=== PATIENT | male | born 1945 | race Caucasian/White ===

== ENCOUNTER 2018-04-09 09:23 | Inpatient (IN) | payer OTHER, BC ==
[2018-04-09] MEDS ORDERED: NS 1,000 ML IV ONE (09:36)
[2018-04-09] MEDS ORDERED: VANCOMYCIN HCL/NORMAL SALINE 250 ML IV ONE (09:36)
--- NOTE | 2018-04-09 09:42 | EDPHY ---
H & P Time Seen by Provider: 04/09/18 09:28 HPI/ROS: CHIEF COMPLAINT: Redness and blistering on the right foot HISTORY OF PRESENT ILLNESS: Patient is a history of osteomyelitis and cellulitis with right 2nd toe removal in the past. He is here visiting from [place] for a relative sweating and started getting redness on the right toe and a blister on it on Tuesday. Over the last 2 days the redness has gotten worsen 2 blisters have popped. He does not really have pain because of peripheral neuropathy, no associated fever or chills. No associated leg swelling or cough or chest pain. Not short of breath. Symptoms moderate currently in associated with a little bit of clear drainage. REVIEW OF SYSTEMS: Eye: no change in vision ENT: no sore throat Cardiac: no chest pain or syncope Pulmonary: no cough or SOB Abdomen: no vomiting, diarrhea, abdominal pain Musculoskeletal: No leg swelling, foot as in HPI Skin: HPI Neuro: no headache Constitutional: no fever : no urinary symptoms A comprehensive 10 point review of systems is otherwise negative aside from elements mentioned in the history of present illness. PAST MEDICAL HISTORY: Includes DVT, neuropathy, osteomyelitis. Social history: From [place] as above General Appearance: Alert and conversant, cooperative. Eyes: No scleral icterus. ENT, Mouth: Normal mucous membranes. Respiratory: Normal respiratory effort, breath sounds equal, lungs are clear to auscultation. Cardiovascular: Regular rate and rhythm. Gastrointestinal: Abdomen is soft and non tender. Neurological: Alert, face symmetric, normal motor and sensory in extremities. Skin: Redness and warmth on the right great toe extending proximally just past the metatarsophalangeal joint, no crepitus or fluctuance. 2 blisters which have ruptured on the medial side. Musculoskeletal: No peripheral edema. No calf tenderness. Psychiatric: Not agitated. Emergency Department course/MDM: Patient presents with cellulitis and has a history of MRSA. He also has a history of osteomyelitis with a toe resection in the past. Does not appear toxic or hypotensive. Labs to include lactate screening and x-ray ordered, IV vancomycin and wound culture, admission hospitalist service. Smoking Status: Never smoked Constitutional: Initial Vital Signs Temperature (C) 36.7 C 04/09/18 09:31 Heart Rate 87 04/09/18 09:31 Respiratory Rate 16 04/09/18 09:31 Blood Pressure 181/111 H 06/17/18 09:31 O2 Sat (%) 96 04/09/18 09:31 O2 Delivery Mode Room Air Allergies/Adverse Reactions: No Known Allergies Allergy (Unverified 04/09/18 09:30) Home Medications: Medication Instructions Recorded Acamprosate Calcium 666 mg PO TID 04/09/18 Aspirin [Aspirin 81mg (*)] 81 mg PO DAILY 04/09/18 Atorvastatin Calcium [Lipitor 40 40 mg PO HS 04/09/18 mg (*)] Calcium Citrate [Calcitrate] 200 mg PO DAILY@152904/09/18 Cholecalciferol (Vitamin D3) 2,000 unit PO DAILY@152904/09/18 [Vitamin D3] Folic Acid [Folic Acid 1 MG (*)] 1 mg PO DAILY@152904/09/18 Glucosamine/Chondroitin 1 each PO DAILY 04/09/18 [Glucosamine/Chondroitin (*)] Rivaroxaban [Xarelto] 20 mg PO HS 04/09/18 Tamsulosin HCl [Flomax] 0.4 mg PO DAILY 04/09/18 Valsartan [Diovan (*)] 160 mg PO HS 04/09/18 Vitamin B Complex [Vitamin B 1 each PO DAILY@152904/09/18 Complex (OTC)] buPROPion XL [Wellbutrin Xl] 150 mg PO BID@0804/09/18 Medical Decision Making - Diagnostics Imaging Results: Imaging Impressions Foot X-Ray 04/09/18 09:36 Impression: Surgical resection of the second toe and second and third metatarsal head. Erosions at the dorsomedial aspect of the IP joint great toe which could represent osteomyelitis or erosive arthropathy. Overlying soft tissue swelling. Other degenerative change, as above. Imaging: I viewed and interpreted images myself Differential Diagnosis: Differential considered including but not limited to abscess, fasciitis, osteomyelitis, cellulitis of the right foot. Consult/Admit Bed Type: [address] - Data Points Laboratory Results: Laboratory Results 04/09/18 09:40 04/09/18 09:40 04/09/18 04/09/18 04/09/18 09:40 09:40 09:40 WBC 6.45 10^3/uL 10^3/uL (3.80-9.50) RBC 4.02 10^6/uL L 10^6/uL (4.40-6.38) Hgb 10.9 g/dL L g/dL (13.7-17.5) Hct 34.1 % L % (40.0-51.0) MCV 84.8 fL fL (81.5-99.8) MCH 27.1 pg L pg (27.9-34.1) MCHC 32.0 g/dL L g/dL (32.4-36.7) RDW 15.1 % % (11.5-15.2) Plt Count 330 10^3/uL 10^3/uL (150-400) MPV 9.0 fL fL (8.7-11.7) Neut % (Auto) 75.0 % H % (39.3-74.2) Lymph % (Auto) 12.6 % L % (15.0-45.0) Anson % (Auto) 9.9 % % (4.5-13.0) Eos % (Auto) 1.7 % % (0.6-7.6) Baso % (Auto) 0.5 % % (0.3-1.7) Nucleat RBC Rel Count 0.0 % % (0.0-0.2) Absolute Neuts (auto) 4.84 10^3/uL 10^3/uL (1.70-6.50) Absolute Lymphs (auto) 0.81 10^3/uL L 10^3/uL (1.00-3.00) Absolute Monos (auto) 0.64 10^3/uL 10^3/uL (0.30-0.80) Absolute Eos (auto) 0.11 10^3/uL 10^3/uL (0.03-0.40) Absolute Basos (auto) 0.03 10^3/uL 10^3/uL (0.02-0.10) Absolute Nucleated RBC 0.00 10^3/uL 10^3/uL (0-0.01) Immature Gran % 0.3 % % (0.0-1.1) Immature Gran # 0.02 10^3/uL 10^3/uL (0.00-0.10) PT 18.3 SEC H SEC (12.0-15.0) INR 1.50 H (0.83-1.16) APTT 33.7 SEC SEC (23.0-38.0) VBG Lactic Acid Sodium 134 mEq/L L mEq/L (135-145) Potassium 4.2 mEq/L mEq/L (3.3-5.0) Chloride 97 mEq/L mEq/L (97-110) Carbon Dioxide 25 mEq/l mEq/l (22-31) Anion Gap 12 mEq/L mEq/L (8-16) BUN 13 mg/dL mg/dL (7-23) Creatinine 1.1 mg/dL mg/dL (0.7-1.3) Estimated GFR > 60 Glucose 93 mg/dL mg/dL (70-100) Calcium 9.3 mg/dL mg/dL (8.5-10.4) Total Bilirubin 0.7 mg/dL mg/dL (0.1-1.4) 04/09/18 09:40 WBC RBC Hgb Hct MCV MCH MCHC RDW Plt Count MPV Neut % (Auto) Lymph % (Auto) Anson % (Auto) Eos % (Auto) Baso % (Auto) Nucleat RBC Rel Count Absolute Neuts (auto) Absolute Lymphs (auto) Absolute Monos (auto) Absolute Eos (auto) Absolute Basos (auto) Absolute Nucleated RBC Immature Gran % Immature Gran # PT INR APTT VBG Lactic Acid 1.3 mmol/L mmol/L (0.7-2.1) Sodium Potassium Chloride Carbon Dioxide Anion Gap BUN Creatinine Estimated GFR Glucose Calcium Total Bilirubin Medications Given: Discontinued Medications Sodium Chloride (Ns) 1,000 mls @ 0 mls/hr IV EDNOW ONE; Wide Open PRN Reason: Protocol Stop: 04/09/18 09:37 Last Admin: 04/09/18 10:09 Dose: 1,000 mls Vancomycin/Sodium Chloride (Vancomycin 1 Gm (Premix)) 250 mls @ 250 mls/hr IV EDNOW ONE PRN Reason: Protocol Stop: 04/09/18 10:35 Last Admin: 04/09/18 10:08 Dose: 250 mls Departure - Departure Disposition: [facility] Inpatient Acute Clinical Impression: Cellulitis of great toe of right foot Condition: Good
[2018-04-09 09:57] LABS: PLATELET COUNT 330 10^3/uL (150-400)
[2018-04-09 10:06] LABS: INR 1.5 (0.83-1.16); PROTIME(PATIENT) 18.3 SEC (12.0-15.0)
[2018-04-09] MEDS ORDERED: ACETAMINOPHEN 325 MG TAB PO PRN (10:26)
[2018-04-09] MEDS ORDERED: ONDANSETRON DISINTEGRATING 4 MG TAB PO PRN (10:26)
[2018-04-09] MEDS ORDERED: ONDANSETRON 4 MG/2 ML VIAL IVP PRN (10:26)
--- NOTE | 2018-04-09 12:07 | PDCONSULT ---
Motor Room Controller Note: Dr. Oropeza requested surgical consultation for a right foot infection. 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 He had a right second toe amp in 2010 and had an open wound for 5 years that ultimately closed. He travelled from [place] to [place] with his last week and wore sandals. He was admitted this morning with redness, pain and swelling of the right great toe. PMH: HTN, neuropathy, EtOHism (sober x 2.5 years) surgery: right second toe amputation 2010 ([facility]) non-smoker SH: and accompanied by his they live in [place] FH: NC ROS: denies recent trauma PE: T36.7 P 87 R 16 BP 181/111 elderly male in NAD RLE: DP/PT pulses +4/+4 erythema right great toe with open wound plantar surface no crepitance/fluctuance Plain films reviewed Imp: cellulitis R great toe, acute on chronic with prior hx MRSA/osteomyelitis no obvious gangrene, no vascular insufficiency Rec: Podiatry consult/continue IV Vanco/pending cultures MRI foot may be of value
[2018-04-09] MEDS ORDERED: GADOBUTROL 10 ML VIAL IVP ONE (12:42)
--- NOTE | 2018-04-09 13:08 | GHP ---
[f rep st] HISTORY AND PHYSICAL DATE OF ADMISSION: 04/09/2018 CHIEF COMPLAINT: Right great toe cellulitis. HISTORY OF PRESENT ILLNESS: A 72-year-old male with history of peripheral neuropathy, secondary to alcohol, prior right foot MRSA infection and osteomyelitis of the right foot with 2nd toe amputation, presenting with right great toe swelling and redness. He and his are here visiting from [place] for a wedding. He has been wearing sandals, instead of his orthotics and developed a blister on the bottom of his foot. This was draining serosanguineous fluid per , but last night, he developed a couple of more blisters and warmth and redness over the top of the toe, as well as the dorsum. He denies any fevers, chills, or sweats. No nausea, vomiting, or diarrhea. He has minimal pain. Initial infection originated in 2010, after getting a blister on his foot. He had a 2nd toe amputation and then had chronic wound healing issues for several years. REVIEW OF SYSTEMS: I completed a 10-point review of systems, negative, except as noted in HPI. PAST MEDICAL HISTORY: 1. Neuropathy, secondary to alcohol. 2. MRSA infection of right foot, osteomyelitis right foot. 3. Left leg DVT x3, on chronic anticoagulation. 4. Hypertension. 5. Hyperlipidemia. PAST SURGICAL HISTORY: Left ANIA, cholecystectomy, right 2nd toe amputation, secondary to osteomyelitis. FAMILY HISTORY: Mother with CVA, alcoholism, lung cancer, hypertension. Father with Parkinson's dementia. SOCIAL HISTORY: Lives in [place] with his . No alcohol, quit in 2014, was a heavy drinker previously. No tobacco or illicits. ALLERGIES: No known drug allergies. HOME MEDICATIONS: Flomax 0.5 mg daily, vitamin D3, calcium citrate, folic acid , vitamin B, aspirin 81 mg day daily, glucosamine, atorvastatin 40 mg at bedtime , valsartan 160 mg at bedtime, Xarelto 20 mg at bedtime, Wellbutrin 150 mg b.i.d., and acamprosate calcium. PHYSICAL EXAMINATION: VITAL SIGNS: Temperature 36.7, blood pressure 174/99, heart rate in the 50s, respirations 18, 93% on room air. GENERAL: male in no acute distress. HEENT: PERRLA. Moist mucous membranes. CV: Regular rate and rhythm. LUNGS: Clear anteriorly. ABDOMEN: Soft, nontender, nondistended. Positive bowel sounds. : No Agarwal. MUSCULOSKELETAL: Right great toe swollen with erythema, warmth to touch. He has an unroofed blister on the bottom of his toe, 2 other blisters on the top. Mild tenderness with palpation. Is draining serosanguineous fluid. Minimal redness over the dorsum. NEUROLOGIC: 2 through 12 intact. Decreased sensation to touch bilateral feet. PSYCH: Alert and oriented x3. LABORATORY/IMAGING: WBC 6, hemoglobin 10, hematocrit 34, platelets 330. INR is 1.5. Lactate is 1.3. Sodium 134, potassium 4.2, chloride 97, carbon dioxide 25, creatinine 1.1, glucose 93, calcium 9.3. Foot x-ray impression: Surgical resection of the 2nd toe and 2nd and 3rd metatarsal head. Erosions at the dorsomedial aspect of the IP, great toe, which could represent osteo or erosive arthropathy. Overlying soft tissue swelling. ASSESSMENT/PLAN: 1. Acute right great toe cellulitis versus osteomyelitis: This occurred this past week with blistering. With history of methicillin-resistant Staphylococcus aureus, we will treat with IV vancomycin. Appreciate Dr. Abreu' evaluation. There is no evidence of gangrene. I will consult Podiatry for further evaluation. MRI pending. 2. History of left leg deep venous thrombosis x3: Will resume Xarelto if no surgical intervention warranted. 3. Accelerated hypertension: Resume home medications. 4. Peripheral neuropathy: This is secondary to chronic alcoholism. 5. History of alcohol abuse: Continue acamprosate calcium. 6. Hyperlipidemia: Statin. 7. Benign prostatic hypertrophy: Fosamax. 8. Diet: Regular. 9. Deep venous thrombosis prophylaxis: On Xarelto. DISPOSITION: Patient warrants inpatient admission for acute right great toe cellulitis warranting IV antibiotics and podiatry evaluation. /[id number]/MODL MTDD
[2018-04-09] MEDS: buPROPion XL 150 MG TAB PO SCH (15:07)
[2018-04-09] MEDS: ACAMPROSATE CALCIUM 333 MG TAB PO SCH ×2 (15:07→21:44)
[2018-04-09] MEDS ORDERED: CHOLECALCIFEROL VIT D3 2,000 UNITS TAB/CAP PO SCH (15:30)
[2018-04-09] MEDS ORDERED: FOLIC ACID 1 MG TAB PO SCH (15:30)
[2018-04-09] MEDS ORDERED: CALCIUM CARBONATE 500 MG TAB PO SCH (15:30)
[2018-04-09] MEDS ORDERED: VITAMIN B COMPLEX 1 EA CAP/TAB PO SCH (15:30)
--- NOTE | 2018-04-09 15:30 | PDMN ---
Medical Necessity Medical necessity: C/M review: est. > 2 MN LOS for eval and TX of acute right great tor cellulitis versus osteomyelitis requiring General Surgery consult, right lower extremity MRI, planned Podiatry consult, Wound Care consult, ongoing IV Vancomycin,, comorbid history of left leg DVT, accelerated hypertension, peripheral neuropathy secondary to alcohol, hyperlipidemia, benign prostatic hypertrophy, MRSA infection of right foot, osteomyelitis of right foot, right second toe amputation secondary to osteomyelitis per H/P.
--- NOTE | 2018-04-09 16:18 | SOAPPROG ---
SOAP Progress Note Assessment/Plan: Assessment: 1. right foot ulceration with cellulitis 2. PN due to ETOH Plan: 1. Debridement of callosity to right hallux. 2. DSD applied to right foot: silvasorb, gauze, coban. Wear surgical shoe until wound has healed. Follow up as outpatient in [place] upon return. Must return to appropriate shoe gear and orthotics after skin has healed to prevent further skin irritation/infection and potential loss of toes/foot/life. 3. Due to osteomyelitis being unlikely after MRI, I would assume that IV abx can be converted to broad spectrum abx (Augmentin, Bactrim, etc) prior to d/c. 4. Podiatry appreciates referral. 04/09/18 16:13 Subjective: doing well. No pain even in sight of cellulitis. denies f/c/n/v. Objective: Vital Signs Temp Pulse Resp BP Pulse Ox 36.4 C 59 L 18 159/96 H 91 L 04/09/18 15:53 04/09/18 15:53 04/09/18 15:53 04/09/18 15:53 04/09/18 15:53 04/08/18 04/09/18 04/10/18 05:59 05:59 05:59 Intake Total 1250 Balance 1250 PT 18.3 SEC (12.0-15.0) H 04/09/18 09:40 INR 1.50 (0.83-1.16) H 04/09/18 09:40 wound underlying callosity medial aspect of IPJ right hallux; wound is superficial with out exposed capsule/tendon/bone; periwound is erythematous with mild HPK; no malodor or drainage; DP/PT pulses 2/4 bilateral; edema and cellulitis present; calor as well - Time Spent With Patient Time Spent With Patient: 40 minutes - Pending Discharge Pending Discharge Within 24 Hours: Yes Pending Discharge Date: 04/10/18 Pending Discharge Time: 11:00 ICD10 Worksheet Patient Problems: Problems Problem Status Onset Cellulitis of great toe of right foot Acute
[2018-04-09] MEDS ORDERED: RIVAROXABAN 20 MG TAB PO SCH (21:00)
[2018-04-09] MEDS ORDERED: VALSARTAN 160 MG TAB PO SCH (21:00)
[2018-04-09] MEDS ORDERED: ATORVASTATIN CALCIUM 40 MG TAB PO SCH (21:00)
[2018-04-09] MEDS: VANCOMYCIN 1.25 GM in NS 250 ML IV SCH (21:44)
[2018-04-10 08:08] VITALS: BP 140/91
[2018-04-10] MEDS: ACAMPROSATE CALCIUM 333 MG TAB PO SCH (08:48)
[2018-04-10] MEDS: buPROPion XL 150 MG TAB PO SCH (08:49)
[2018-04-10] MEDS ORDERED: GLUCOSAMINE/CHONDROITIN CAP PO SCH (09:00)
[2018-04-10] MEDS ORDERED: TAMSULOSIN HCL 0.4 MG CAP PO SCH (09:00)
[2018-04-10] MEDS ORDERED: ASPIRIN 81 MG CHEWABLE TAB PO SCH (09:00)
--- NOTE | 2018-04-10 09:08 | ASMTCMCOM ---
CM Note CM Note Notes: Chart reviewed. Admitted via ED for increasing redness and swelling of right great toe. 72 year old male visiting from [place] with hx significant for cellulitis, osteomyelitis and neuropathy. MRI done. Cultures pending. No needs anticipated CM to follow. Plan: TBD Date Signed: 04/10/2018 09:07 AM Electronically Signed By:Jennifer Lopes RN
[2018-04-10] MEDS: VANCOMYCIN 1.25 GM in NS 250 ML IV SCH (09:52)
--- NOTE | 2018-04-10 09:52 | GDS ---
[f rep st] DISCHARGE SUMMARY DISCHARGE DIAGNOSES: 1. Right great toe cellulitis. 2. History of left leg deep vein thrombosis x3. 3. Neuropathy secondary to alcohol. 4. History of methicillin-resistant Staphylococcus aureus/osteomyelitis right foot. 5. Hypertension. 6. Hyperlipidemia. CONSULTATIONS: Dr. Chisholm with Podiatry. HISTORY OF PRESENT ILLNESS: A 72-year-old male with a history of peripheral neuropathy, prior right foot MRSA infection, osteomyelitis, with history of 2nd toe amputation. He presents with right great toe swelling and redness. He and his were visiting here from [place] for a wedding. He has been wearing sandals instead of his orthotics and developed a blister on the bottom of his foot. This was draining some serosanguineous fluid, but the night prior to admission, developed a couple more blisters, warmth and redness of the top of the toe and foot. Denies any fevers, chills, or sweats. HOSPITAL COURSE: 1. Right great toe cellulitis: No evidence of osteomyelitis on MRI. Both General Surgery and Podiatry evaluated patient. Symptoms improved on IV vancomycin. Will transition to Bactrim for a total of 7 days antibiotics. He needs to follow up with his primary equipment tech. MRSA on foot swab, negative blood cultures. 2. DVT: Resume Xarelto. 3. Hypertension: Home medications. 4. Hyperlipidemia: Is to resume home medications. 5. Neuropathy secondary alcohol. DISPOSITION: Patient is stable for discharge home with his . NEW MEDICATIONS: Bactrim Double Strength for 6 more days. PHYSICAL EXAMINATION: VITAL SIGNS: Today, temperature 36.8, blood pressure 140 /91, heart rate in the 50s to 60s, respirations 16, 91% on room air. GENERAL: Overweight male in no acute distress. HEENT: PERRLA. Moist mucous membranes. CV: Regular rate and rhythm. No murmur. LUNGS: Clear. ABDOMEN: Soft, nontender. Positive bowel sounds. : No Agarwal. MUSCULOSKELETAL: Right great toe wrapped but less swelling, redness over the dorsum. No tenderness to palpation. NEURO: Decreased sensation to touch in bilateral feet. PSYCH: Alert and oriented x3. /[id number]/MODL MTDD
--- NOTE | 2018-04-10 12:03 | GCON ---
[f rep st] CONSULTATION DATE OF CONSULTATION: 04/09/2018 REFERRING PHYSICIAN: Saloni Oropeza MD REASON FOR CONSULTATION: Infection with wound, right great toe. HISTORY OF PRESENT ILLNESS: The patient is a 72-year-old gentleman who was traveling here from [facility] to attend his niece's wedding arriving within the last week. The patient was wearing sandals and not his appropriately fitting shoes with custom fit orthotics and unfortunately caused some irritatio n to the skin tissues and a large infected blister. This was of the right foot. The fredy ent does have a history of peripheral neuropathy due to alcohol intake. This is the not the first ti me the patient has run into neuropathic issues of his feet. The patient has had a previous right 2nd toe amputation along with metatarsal head amputations of the right forefoot. He was admitted throug h the emergency department. He currently denies any fever, chills, nausea, vomiting, shortness of br eath, or chest pain. REVIEW OF SYSTEMS: A 10-point review of systems was completed and is negative for otherwise noted in the HPI. PAST MEDICAL HISTORY: Significant for alcoholic neuropathy, history of right foot partial amputation with MRSA infection. Anticoagulation due to left leg DVT. PAST SURGICAL HISTORY: Right 2nd toe amputations. FAMILY HISTORY: Father has Parkinson's. Mother also suffers from alcoholism and has had a stroke. SOCIAL HISTORY: The patient quit alcohol within the last 5 years. He does not use tobacco or illici t drugs. He is here with his from [place]. ALLERGIES: No known drug allergies. HOME MEDICATIONS: Xarelto, Wellbutrin, atorvastatin, Flomax, baby aspirin daily. LABORATORY DATA: His white blood cell count is roughly 6.4, his hemoglobin is 10 and his hematocrit is 34. PHYSICAL EXAMIATION: VITAL SIGNS: All within normal limits. He is afebrile. GENERAL: He is a 72- year-old male who is alert and oriented x3 and in no acute distress. EXTREMITIES: The patient has p alpable pulses bilaterally, dorsalis pedis and posterior tibial pulses. He does have edema of the ri ght great toe with a significant hallux interphalangeus and hallux abductus of the right great toe. There is a blister that is no longer intact or fluid-filled to the right dorsal medial aspect of the patient's toe. Following de-anette of the blister there is granulation tissue consistent with a bas ement membrane. There is no exposed capsule, tendon or bone. There is no ascending cellulitis or ly mphangitis of the right lower extremity. IMAGING: Foot x-ray impression: There are erosive changes to the 1st metatarsophalangeal joint as w ell as to the dorsal medial aspect of the IPJ of the right hallux. The patient has the 2nd right toe and 2nd metatarsal resected. It appears that the right 3rd metatarsal has also been resected. MRI shows soft tissue increase intensity but no evidence for osteomyelitis of the right great toe. ASSESSMENT AND PLAN: 1. Right foot cellulitis: Will continue to be treated with IV antibiotic but with the relatively no rmal bony appearance within the MRI, I would expect with the IV antibiotics switched over to oral ant ibiotics for the next 10-14 days. 2. Right foot wounds: The area was selectively debrided with any nonviable tissue being removed. T he wounds were dressed with a light application of Silvercel SilvaSorb wound gel and a dry sterile dr essing was placed with Coban. Nursing team was instructed on how to do this as well as the patient a nd his . The patient will repeat this dressing daily for the next week until the wound is healed . It is imperative the patient return to his well fitting appropriately sized shoes with custom orth otics to avoid any further damage. The patient understands the acute signs of infection and to seek medical treatment if seen. 3. The Podiatry service appreciates the consultation and will follow the patient as needed as an inp atient until his discharge. /[id number]/MODL
== END 2018-04-10 11:14 | disposition home or self-care (01) | DRG 603 ==
LOC: INTOOBSV 10:05 → OBSVTOIN 10:26 → F1N 11:06
PROVIDERS: ADMIT Internal Medicine; ATTEND Internal Medicine
DX: L03.031 Cellulitis of right toe (principal); G62.1 Alcoholic polyneuropathy; I10 Essential (primary) hypertension; E78.5 Hyperlipidemia, unspecified; N40.0 Benign prostatic hyperplasia without lower urinary tract symptoms; Z89.421 Acquired absence of other right toe(s); Z86.14 Personal history of Methicillin resistant Staphylococcus aureus infection; Z86.718 Personal history of other venous thrombosis and embolism
CPT/HCPCS: 96365; 97161-GP; A9585; G8978-GP-CI; G8979-GP-CI; G8980-GP-CI; J3370